=== PATIENT | male | born 1960 | race Caucasian/White ===

== ENCOUNTER 2018-09-11 12:05 | Emergency (ER) | payer BC ==
[2018-09-11 12:29] VITALS: TEMP 97.6
[2018-09-11] MEDS ORDERED: SODIUM CHLORIDE 0.9% 1000ML 1,000 ML IV ONE ×2 (12:37→12:48)
[2018-09-11] MEDS ORDERED: SODIUM CHLORIDE 0.9% FLUSH 10 ML SOL IV PRN (12:48)
[2018-09-11 16:22] VITALS: BP 115/69; PULSE 115; RESP 27; O2SAT 94
[2018-09-11] MEDS ORDERED: FENTANYL 100MCG/2ML SOL IV ONE (16:41)
[2018-09-11] MEDS ORDERED: SODIUM CHLORIDE 0.9% 1000ML 1,000 ML IV SCH (16:45)
[2018-09-11] MEDS ORDERED: FENTANYL 100MCG/2ML SOL ONE (16:50)
== END 2018-09-11 17:01 | disposition short-term general hospital (02) ==
LOC: ED 12:05
DX: C34.90 Malignant neoplasm of unspecified part of unspecified bronchus or lung (principal); R06.02 Shortness of breath; R53.1 Weakness; I10 Essential (primary) hypertension; R53.83 Other fatigue
CPT/HCPCS: 71260; 74177; 96365; 96374; 99284; 99285; J3010; Q9967